=== PATIENT | female | born 1980 | race Caucasian/White ===

== ENCOUNTER → 2016-06-19 | Day surgery (SDC) | payer OTHER ==
[~2016-06-19] MED LIST: ACETAMINOPHEN PO; AMOXICILLIN875 MG PO; ATENOLOL PO; CLARITIN10 M3; ESTROGEN; FIORICET1 TAB PO; IMITREX25 MG PO; IMITREX4 MG/0.5 M; LINZESS72 MCG; LORTAB 5/500 TA1 TA1 PO; LORTAB 7.5-5001 TAB; MOBIC15 MG; MULTI VITAMIN1 EACH; NO MEDICATIONS; PHENERGAN25 MG; PHENERGAN25 MG PO; PRENATAL VITAMI1 TA3 PO; PRENATAL1 TA1 PO; PRILOSEC PO; ROBITUSSIN100 MG/52 PO; TAPAZOLE5 MG; TAPAZOLE5 MG PO; VITAMIN D400 UNI2 PO; ZOFRAN ODT4 MG PO; [UNRECOGNIZED DRUG - OTHER]; [UNRECOGNIZED DRUG - OTHER] PO
--- NOTE | ~2016-06-19 | OR ---
Unit #: [id number] #: [id number] Patient: JOLENE CRISOSTOMO [id number] [address] [place], [place] [address] [id number] O MR#: [id number] NAME: JOLENE CRISOSTOMO ROOM: Date of Procedure: 06/19/2016 Admission Date: 06/19/2016 Surgeon: Yakov Green M.D. : 1980 Attending Physician: Yakov Green M.D. Primary Care Physician: Alia Diaz A.P.R.N. OPERATIVE REPORT PROCEDURES PERFORMED Esophagogastroduodenoscopy with biopsy and colonoscopy to cecum with biopsies. INDICATIONS FOR PROCEDURE A 35-year-old female with history of abdominal pain mostly in the left upper quadrant epigastric area, also with chronic constipation and recurrent blood in the stool, undergoing evaluation with upper endoscopy and colonoscopy. MEDICATIONS Monitored anesthesia. POSTOPERATIVE FINDINGS 1. Small hiatal hernia. 2. Mild gastritis. Biopsies taken. 3. Normal duodenum and distal duodenum. Biopsies taken looking for celiac disease. 4. Colonoscopy completed to cecum and terminal ileum. Mucosa was normal and healthy. No colitis was seen. 5. Small polyp seen in the sigmoid colon was removed using biopsy forceps. 6. Small internal hemorrhoids. PLAN Follow up on pathology report. Symptomatic treatment for now. DESCRIPTION OF PROCEDURE The patient was explained of the procedure, risks, and benefits along with risks and benefits of anesthesia. She was brought to the endoscopy room. Propofol anesthesia was given. Bite block was placed. The scope was passed down the mouth into the esophagus, stomach, duodenum, and distal duodenum. Findings as described. Biopsies taken. Gently, I pulled it out the patient's mouth. At this time, she was turned around and repositioned for colonoscopy. Rectal exam was done, which was normal. Colonoscope was lubricated, passed up the rectum, advanced under direct vision all the way to cecum. Cecum was identified by ileocecal valve and appendiceal orifice. Terminal ileum intubated, shows normal mucosa. Colonic mucosa was normal throughout. I retroflexed in the rectum, small hemorrhoids seen. Small polyp seen in sigmoid colon was removed using biopsy forceps also. Gently, the scope was pulled out. She tolerated it well. No major Unit #: [id number] #: [id number] Patient: JOLENE CRISOSTOMO complications were seen. Dictated by... David Jennings/jr TD: 06/20/2016 01:56 JOB #: [id number] OPERATIVE REPORT Page 1 of 1 X Yakov Green MD X PROCEDURE OPERATIVE NOTE
== END | disposition home or self-care (01) ==
LOC: COPS 12:09
DX: K63.5 Polyp of colon (principal); K29.50 Unspecified chronic gastritis without bleeding; K29.80 Duodenitis without bleeding; K64.8 Other hemorrhoids; K44.9 Diaphragmatic hernia without obstruction or gangrene; Z87.442 Personal history of urinary calculi; Z88.6 Allergy status to analgesic agent; Z88.8 Allergy status to other drugs, medicaments and biological substances; Z79.1 Long term (current) use of non-steroidal anti-inflammatories (NSAID); Z79.899 Other long term (current) drug therapy; Z90.49 Acquired absence of other specified parts of digestive tract
CPT/HCPCS: 88305; 88312; J2250

== ENCOUNTER → 2016-10-30 | Outpatient (CLI) | payer OTHER ==
--- NOTE | ~2016-10-30 | CT4 ---
[facility] A Service of [facility] RADIOLOGY TEXT RESULTS PATIENT: JOLENE CRISOSTOMO LOCATION: [facility] : 80 UNIT #: [id number] AGE: [address]: Alia Diaz SEX: F ORDER DR: [id number] [address] [address] [id number] O MR#: [id number] Acc #: [id number] NAME: JOLENE CRISOSTOMO. : 1980 SEX: F STUDY DATE/TIME: 10/30/2016 9:11 UNIT: [facility] ROOM: STUDY DESCRIPTION: CT Abd and Pelv Wo Cont Attending Physician: Alia Diaz A.P.R.N. Referring Physician: Alia Diaz A.P.R.N. Ordering Physician: Alia Diaz A.P.R.N. Primary Care Physician: Alia Diaz A.P.R.N. MEDICAL IMAGING REPORT This report is preliminary unless electronic signature is present. EXAM CT abdomen and pelvis without contrast, 10/30/2016. HISTORY Right flank pain for 1 week. Frequent urination at night with pressure. Microscopic hematuria. History of kidney stones. Previous hysterectomy and cholecystectomy. COMPARISON CT abdomen and pelvis with contrast, 10/08/2010. PROCEDURE Three-millimeter noncontrast axial images through the abdomen and pelvis. Enteric contrast was not administered. Sagittal and coronal reformatted images were obtained. This CT exam was performed with one or more of the following radiation dose reduction techniques: automatic exposure control, adjustment of mA and/or kV according to patient size, and iterative reconstruction. FINDINGS ABDOMEN: No urinary tract stone or hydronephrosis or perinephric inflammation is seen. The lung bases are clear. The gallbladder is surgically absent. Noncontrast appearance of the liver, spleen, pancreas, adrenals within normal limits. The unopacified bowel appears nonthickened and noninflamed. The appendix is normal. PELVIS: Left ovary is visualized and appears within normal limits. The right ovary is not visualized on today's examination. Hysterectomy. Urinary bladder is decompressed. There appears to be some tiny proliferation within the pelvis which has developed since the previous examination, although no discrete or well-defined lesion is identified. The right ovary, described on 10/08/2010, is not visualized on today's examination. [facility] [place]. [facility] A Service of [facility] RADIOLOGY TEXT RESULTS PATIENT: JOLENE CRISOSTOMO LOCATION: [facility] : 80 UNIT #: [id number] AGE: [address]: Alia Diaz SEX: F ORDER DR: No acute osseous abnormalities are seen. IMPRESSION 1. No acute findings within the abdomen or pelvis. No urinary tract stone or hydronephrosis is seen. 2. 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 This could create some extrinsic compression upon the urinary bladder, and may be related to the patient's reported history of urinary frequency and pressure sensation. However, no discrete or well-defined lipoma or mass lesion is evident. 3. Hysterectomy. 4. Cholecystectomy. Dictated by... Gisel Davis M.D. THIS IS AN ELECTRONICALLY VERIFIED REPORT Gisel Davis M.D. at 11/05/2016 8:36 AM PAULY/cosme TD: 10/30/2016 13:29 JOB #: [id number] MEDICAL IMAGING REPORT Page 1 of 1
== END | disposition home or self-care (01) ==
LOC: SCT 09:00 → CCAT 09:20
DX: R31.29 Other microscopic hematuria (principal); Z90.49 Acquired absence of other specified parts of digestive tract; Z90.710 Acquired absence of both cervix and uterus
CPT/HCPCS: 74176